=== PATIENT | male | born 1960 | race Caucasian/White ===

== ENCOUNTER 2017-03-17 00:21 | Emergency (ER) | payer OTHER ==
--- NOTE | 2017-03-17 02:18 | ED NURSING NOTES ---
Clinical Report - Nurses [place] [address] [place] [place] [address] 03/17/2017 0:22 Patient: AMANDA BLISS TRIAGE Triage time 00:34. Acuity: LEVEL 3. Chief Complaint: ABDOMINAL PAIN, NAUSEA and VOMITING and URINARY FREQUENCY and FLANK PAIN (right flank pain). --00:41 Maki Lord R.N. 00:34 03/17/17. BP: 165/99 taken on the left arm, while lying. HR: 81 (regular and normal rate). RR: 18 (regular, unlabored and normal). O2 saturation: 98% on room air. Temp: 97.3 F (oral). Pain level now: 03/23. --00:41 Maki Lord R.N. Weight: 97.5 kg stated. Height/Length: 71 inches Per Patient. BMI: 30. --00:38 Maki Lord R.N. Medications None. --00:37 Maki Lord R.N. Allergies Penicillin. --00:37 Maki Lord R.N. History Arrived by private vehicle. Historian: patient. Accompanied by family. Primary physician (ford). Onset was gradual. Symptoms are intermittent (started Tuesday). He has had nausea, vomiting and abdominal pain. Last oral intake by patient was dinner (7 PM). PAST MEDICAL HX: Immunizations: up-to-date. SOCIAL HX: Never smoker. Occasional alcohol use. No drug use. Recent travel by airplane in the last week- ([place]). SELF HARM ASSESSMENT: A self harm assessment was performed. The patient answered "no" to the question "Have you recently felt down, depressed, or hopeless?", "Have you noticed less interest or pleasure in doing things?", "Do you have thoughts of harming or killing yourself?", "Are you here because you tried to hurt yourself?", "Have you ever tried to hurt yourself before today?", "Have you recently had thoughts about harming or killing others?" and "Do you have any dangerous items in your possession?". --00:41 Maki Lord R.N. 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 --00:37 Maki Lord R.N. ADDITIONAL SURGERIES: Knee Surgery. Shoulder Surgery. --00:37 Maki Lord R.N. Interventions ID band on patient. --00:41 Maki Lord R.N. PHYSICAL ASSESSMENT Ambulatory to room. GENERAL / NEURO / PSYCH: Alert. Oriented X 4. Appears in pain. RESPIRATORY: Respirations not labored. Breath sounds within normal limits. CVS: Normal sinus rhythm noted. GI / : The patient has had intermittent episodes of nausea. Abdomen soft. Abdominal tenderness in the right side of the abdomen (right flank with intermittent). Bowel sounds within normal limits. SKIN: Skin is warm and dry. --00:42 Maki Lord R.N. NURSING PROGRESS NOTES Patient gowned. Two patient identifiers checked. Call light placed in reach. Side rails up x 2. Bed placed in lowest position. Brakes of bed on. --00:42 Maki Lord R.N. Patient ready for evaluation- chart flagged. --00:43 Maki Lord R.N. 00:38 03/17/2017 Site #1 started via IV in the left antecubital space with an 20g angiocath, with aseptic technique and good blood return; one attempt. Blood drawn: rainbow set. Labeled in the presence of the patient and sent to the lab. Saline lock flushed with 10 mL saline. --00:48 Torrey Nicholson R.N. 00:48 03/17/2017 Started bag #1 1000 mL IV Fluids IV NS (Saline); at 1000 mL/hr over 1 hour(s) via site #1. Allergies verified and confirmed 5 rights. IV patency established. IV site checked: no pain, redness, or swelling. IV flushed thoroughly pre- and post-medication administration. Completed per protocol. --00:48 Torrey Nicholson R.N. 00:53 03/17/2017 Zofran (Ondansetron HCl) IVP 4 mg given over 1 minute(s) via site #1. Allergies verified and confirmed 5 rights. IV patency established. IV site checked: no pain, redness, or swelling. IV flushed thoroughly pre- and post-medication administration. IVP given by RN. --00:53 Torrey Nicholson R.N. 00:45. ( Patient states that he is nauseous). --00:53 Torrey Nicholson R.N. 01:22 03/17/2017 Dilaudid (HYDROmorphone HCl PF) IVP 0.5 mg given over 2 minute(s) via site #1. Allergies verified, confirmed 5 rights and sedative warning given to the patient. IV patency established. IV site checked: no pain, redness, or swelling. IV flushed thoroughly pre- and post-medication administration. IVP given by RN. --01:23 Maki Lord R.N. Patient transported to [place] by stretcher with tech. (01:23). --01:23 Maki Lord R.N. 01:55 03/17/2017 IV Fluids IV NS Discontinued: bag #1 infused. Total amount infused: 1000 mL. IV patency established. IV site checked: no pain, redness, or swelling. IV flushed thoroughly. --04:03 Nilson Aldana R.N. 02:25 03/17/2017 Dilaudid (HYDROmorphone HCl PF) IVP 0.5 mg given over 2 minute(s) via site #1. Allergies verified, confirmed 5 rights and sedative warning given. IV patency established. IV site checked: no pain, redness, or swelling. IV flushed thoroughly pre- and post-medication administration. IVP given by RN. --04:01 Nilson Aldana R.N. 02:35 03/17/2017 Site #1 removed upon discharge. Catheter intact. Manual pressure, bandaid and bandage applied. --04:03 Nilson Aldana R.N. DISPOSITION / DISCHARGE 02:35 03/17/17. BP: 157/86. HR: 70. RR: 16. O2 saturation: 97% on room air. Temp: 98.7 F. Pain level now: 10. Additional comments: Flank pain. --04:16 Nilson Aldana R.N. Departure time: 0240. --04:16 Nilson Aldana R.N. 02:40. Condition at departure: improved. No learning barriers present. Discharge instructions provided and reviewed with the patient and spouse. Reviewed medication(s) (prescription given to spouse). Reviewed referral to a urologist and family practice for followup. Patient verbalized understanding. Written instructions provided in Italian. The patient was discharged by the physician. He was discharged home and accompanied by spouse. He left the Emergency Department ambulatory and via private vehicle. Spouse driving. --04:24 Nilson Aldana R.N. Locked/Released at 03/17/2017 4:26 by Nilson Aldana R.N.
--- NOTE | 2017-03-17 02:18 | ED NURSING NOTES ---
Clinical Report - Nurses [place] [address] [address] [address] 03/17/2017 0:22 Patient: AMANDA BLISS TRIAGE Triage time 00:34. Acuity: LEVEL 3. Chief Complaint: ABDOMINAL PAIN, NAUSEA and VOMITING and URINARY FREQUENCY and FLANK PAIN (right flank pain). --00:41 Maki Lord R.N. 00:34 03/17/17. BP: 165/99 taken on the left arm, while lying. HR: 81 (regular and normal rate). RR: 18 (regular, unlabored and normal). O2 saturation: 98% on room air. Temp: 97.3 F (oral). Pain level now: 03/23. --00:41 Maki Lord R.N. Weight: 97.5 kg stated. Height/Length: 71 inches Per Patient. BMI: 30. --00:38 Maki Lord R.N. Medications None. --00:37 Maki Lord R.N. Allergies Penicillin. --00:37 Maki Lord R.N. History Arrived by private vehicle. Historian: patient. Accompanied by family. Primary physician ([facility]). Onset was gradual. Symptoms are intermittent (started Tuesday). He has had nausea, vomiting and abdominal pain. Last oral intake by patient was dinner (7 PM). PAST MEDICAL HX: Immunizations: up-to-date. SOCIAL HX: Never smoker. Occasional alcohol use. No drug use. Recent travel by airplane in the last week- ([place]). SELF HARM ASSESSMENT: A self harm assessment was performed. The patient answered "no" to the question "Have you recently felt down, depressed, or hopeless?", "Have you noticed less interest or pleasure in doing things?", "Do you have thoughts of harming or killing yourself?", "Are you here because you tried to hurt yourself?", "Have you ever tried to hurt yourself before today?", "Have you recently had thoughts about harming or killing others?" and "Do you have any dangerous items in your possession?". --00:41 Maki Lord R.N. 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 --00:37 Maki Lord R.N. ADDITIONAL SURGERIES: Knee Surgery. Shoulder Surgery. --00:37 Maki Lord R.N. Interventions ID band on patient. --00:41 Maki Lord R.N. PHYSICAL ASSESSMENT Ambulatory to room. GENERAL / NEURO / PSYCH: Alert. Oriented X 4. Appears in pain. RESPIRATORY: Respirations not labored. Breath sounds within normal limits. CVS: Normal sinus rhythm noted. GI / : The patient has had intermittent episodes of nausea. Abdomen soft. Abdominal tenderness in the right side of the abdomen (right flank with intermittent). Bowel sounds within normal limits. SKIN: Skin is warm and dry. --00:42 Maki Lord R.N. NURSING PROGRESS NOTES Patient gowned. Two patient identifiers checked. Call light placed in reach. Side rails up x 2. Bed placed in lowest position. Brakes of bed on. --00:42 Maki Lord R.N. Patient ready for evaluation- chart flagged. --00:43 Maki Lord R.N. 00:38 03/17/2017 Site #1 started via IV in the left antecubital space with an 20g angiocath, with aseptic technique and good blood return; one attempt. Blood drawn: rainbow set. Labeled in the presence of the patient and sent to the lab. Saline lock flushed with 10 mL saline. --00:48 Torrey Nicholson R.N. 00:48 03/17/2017 Started bag #1 1000 mL IV Fluids IV NS (Saline); at 1000 mL/hr over 1 hour(s) via site #1. Allergies verified and confirmed 5 rights. IV patency established. IV site checked: no pain, redness, or swelling. IV flushed thoroughly pre- and post-medication administration. Completed per protocol. --00:48 Torrey Nicholson R.N. 00:53 03/17/2017 Zofran (Ondansetron HCl) IVP 4 mg given over 1 minute(s) via site #1. Allergies verified and confirmed 5 rights. IV patency established. IV site checked: no pain, redness, or swelling. IV flushed thoroughly pre- and post-medication administration. IVP given by RN. --00:53 Torrey Nicholson R.N. 00:45. ( Patient states that he is nauseous). --00:53 Torrey Nicholson R.N. 01:22 03/17/2017 Dilaudid (HYDROmorphone HCl PF) IVP 0.5 mg given over 2 minute(s) via site #1. Allergies verified, confirmed 5 rights and sedative warning given to the patient. IV patency established. IV site checked: no pain, redness, or swelling. IV flushed thoroughly pre- and post-medication administration. IVP given by RN. --01:23 Maki Lord R.N. Patient transported to [place] by stretcher with tech. (01:23). --01:23 Maki Lord R.N. 01:55 03/17/2017 IV Fluids IV NS Discontinued: bag #1 infused. Total amount infused: 1000 mL. IV patency established. IV site checked: no pain, redness, or swelling. IV flushed thoroughly. --04:03 Nilson Aldana R.N. 02:25 03/17/2017 Dilaudid (HYDROmorphone HCl PF) IVP 0.5 mg given over 2 minute(s) via site #1. Allergies verified, confirmed 5 rights and sedative warning given. IV patency established. IV site checked: no pain, redness, or swelling. IV flushed thoroughly pre- and post-medication administration. IVP given by RN. --04:01 Nilson Aldana R.N. 02:35 03/17/2017 Site #1 removed upon discharge. Catheter intact. Manual pressure, bandaid and bandage applied. --04:03 Nilson Aldana R.N. DISPOSITION / DISCHARGE 02:35 03/17/17. BP: 157/86. HR: 70. RR: 16. O2 saturation: 97% on room air. Temp: 98.7 F. Pain level now: 10. Additional comments: Flank pain. --04:16 Nilson Aldana R.N. Departure time: 0240. --04:16 Nilson Aldana R.N. 02:40. Condition at departure: improved. No learning barriers present. Discharge instructions provided and reviewed with the patient and spouse. Reviewed medication(s) (prescription given to spouse). Reviewed referral to a urologist and family practice for followup. Patient verbalized understanding. Written instructions provided in Ecuadorean. The patient was discharged by the physician. He was discharged home and accompanied by spouse. He left the Emergency Department ambulatory and via private vehicle. Spouse driving. --04:24 Nilson Aldana R.N. Locked/Released at 03/17/2017 4:26 by Nilson Aldana R.N.
--- NOTE | 2017-03-17 02:18 | ED CLINICAL REPORT ---
Clinical Report - Physicians/Mid Levels [facility] [address] [place] [address] 03/17/2017 0:22 Patient: AMANDA BLISS Time Seen: 01:05. Arrived- By private vehicle. Historian- patient. HISTORY OF PRESENT ILLNESS Chief Complaint: FLANK PAIN. At its maximum, severity described as severe. When seen in the E.D., severity described as moderate. Modifying factors. Not worsened by anything. Not relieved by anything. It is described as "pain" and sharp. It is described as located in the right flank and the right abdomen, right lower quadrant and right pelvis and radiating to the right lower quadrant of the abdomen. This started about 3 - 4 days ago, worse just prior to arival and is still present. It was gradual in onset and has been waxing/waning. The patient has had nausea and vomiting. No diarrhea. Similar symptoms previously: Recent medical care: Not recently seen/assessed. REVIEW OF SYSTEMS No constipation, black stools, hematemesis, difficulty with urination or pain with urination. No bloody stools, fever, headache, sore throat or chest pain. No difficulty breathing or cough. The patient has had urinary frequency. The patient has had back pain. All systems otherwise negative, except as recorded above. PAST HISTORY PCP: [facility] (Dr Escobar) 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 SURGERIES: Knee Surgery. Shoulder Surgery. Medications: None. Allergies: Penicillin. SOCIAL HISTORY Never smoker. Occasional alcohol use. No drug use. ADDITIONAL NOTES The nursing notes have been reviewed. PHYSICAL EXAM Vital Signs: 03/17/2017 00:34 BP: 165/99. HR: 81. RR: 18. O2 saturation: 98%. Temp: 97.3 F. Pain level now: 5/10. Appearance: Alert. Oriented X3. Patient in moderate distress. Eyes: Eyes normal inspection. No scleral icterus or pale conjunctivae. ENT: Pharynx normal. No pharyngeal erythema or tonsillar exudate. The mucous membranes are not dry. Neck: Normal inspection. Neck supple. CVS: Normal heart rate and rhythm. Heart sounds normal. Pulses normal. Respiratory: No respiratory distress. Breath sounds normal. Abdomen: Soft and nontender. No mass. Back: Mild CVA tenderness on the right. : Normal genitalia. Skin: Skin warm and dry. Normal skin color. No rash. Normal skin turgor. Extremities: Extremities exhibit normal ROM. No lower extremity edema. No calf tenderness. No lower extremity edema. Neuro: Oriented X 3. No motor deficit. LABS, X-RAYS, AND EKG Laboratory Tests: UA-Culture if indicated: (BRET: 03/17/2017 02:14) ( [facility] [place] 03/17/2017 02:32) Final results Test Result Flag Units (Reference) URINE COLOR YELLOW URINE APPEARANCE CLEAR URINE GLUCOSE NEGATIVE (NEGATIVE) URINE BILIRUBIN NEGATIVE (NEGATIVE) URINE KETONE NEGATIVE (NEGATIVE) URINE SPECIFIC GRAVITY 1.015 (1.010-1.030) URINE PH 7.0 (5.0-8.0) URINE PROTEIN NEGATIVE (NEGATIVE) URINE UROBILINOGEN 0.2 EU/dL (0.2-1.0) URINE NITRITE NEGATIVE (NEGATIVE) URINE BLOOD 1+ (NEGATIVE) URINE LEUK ESTERASE NEGATIVE (NEGATIVE) URINE RBC 1-3 rbc/hpf (0-1) URINE WBC 0-1 wbc/hpf (0-1) URINE EPITHELIAL CELLS 0-1 EPI/hpf (0-5) URINE BACTERIA NONE SEEN (NONE SEEN) URINE COMMENT CULT NOT INDICATED URINE CULTURES ARE SET-UP BASED ON THE FOLLOWING CRITERIA:POSITIVE NITRITEPOSITIVE LEUKOCYTE ESTERASEGREATER THAN 10 WHITE BLOOD CELLSMODERATE (2+) OR GREATER BACTERIA CBC w Diff: (BRET: 03/17/2017 00:40) ( Mscvd 03/17/2017 00:58) Final results Test Result Flag Units (Reference) WHITE BLOOD COUNT 12.2 H K/uL (4.5-11.5) RED BLOOD COUNT 4.71 M/uL (4.50-5.90) HEMOGLOBIN 14.4 gm/dL (13.5-17.5) HEMATOCRIT 42.9 % (41.0-53.0) MEAN CELL VOLUME 91 fL (80-100) MEAN CORPUSCULAR HGB 31 pg (26-34) MEAN CORPUSCULAR HGB CONC 34 g/dL (31-37) RED CELL DISTRIBUTION WIDTH 13.3 % (11.6-14.8) PLATELET COUNT 297 K/uL (150-400) NEUTROPHIL % 80.6 H % (50-75) LYMPH % 11.8 L % (25-40) MONO % 6.2 % (3-14) EOSINOPHIL % 1.1 % (0-4) BASOPHIL % 0.3 % (0-2) CMP: (BRET: 03/17/2017 00:40) ( MsgRcvd 03/17/2017 01:10) Final results Test Result Flag Units (Reference) GLUCOSE 128 H mg/dL (70-110) BUN 31 H mg/dL (7-18) CREATININE 1.6 H mg/dL (0.6-1.3) Estimated GFR 47.42 mL/min Estimated GFR- 57.48 mL/min Note: Persistent reduction over 3 months in eGFR<60 mL/min/1.73 m2 defines CKD. Patients with eGFR values>=60 mL/min/1.73 m2 may also have CKD if evidence ofpersistent proteinuria. Additional information may be foundat www.kidney.org. SODIUM 144 mmol/L (136-145) POTASSIUM 4.2 mmol/L (3.5-5.1) CHLORIDE 106 mmol/L (98-107) CARBON DIOXIDE 27 mmol/L (21-32) CALCIUM 8.5 mg/dL (8.5-10.1) TOTAL PROTEIN 7.6 g/dL (6.4-8.2) ALBUMIN 3.8 g/dL (3.3-5.0) BILIRUBIN, TOTAL 0.4 mg/dL (0.0-1.0) ALKALINE PHOSPHATASE 115 U/L (46-116) AST (SGOT) 25 U/L (15-37) ALT (SGPT) 55 U/L (12-78) . Pulse Oximetry: 03/17/2017 00:34 O2 saturation: 98%. (FIO2 - room air). Interpretation: normal. PROGRESS AND PROCEDURES Course of Care: Normal Saline 1 liter IVPB given. Zofran 4 mg IVP given. Dilaudid 0.5 mg + 0.5 mg IVP given. 02:26 03/17/17. Patient is stable. Physical exam findings are improved. Symptoms much better. Stone at the UV junction - should pass. Patient/family counseled. Old ED records reviewed. Disposition: Discharged. Condition: stable and improved. CLINICAL IMPRESSION Ureterolithiasis (single stone) in the right ureter with renal colic (3 mm stone at the UVJ). No urinary tract infection. Inhomogeneous hepatic density of unclear etiology - likely artifactual. INSTRUCTIONS Do not work for two days. Drink plenty of fluids. No alcohol until released. Warnings: Further evaluation is necessary in order to recheck abnormal lab, obtain test results, conduct further tests and assess the possibility of serious illness. It is very important to follow up with a physician. SEDATIVE MEDICATION: You were given sedative medication during your visit. Do not drive or operate dangerous machinery. CONTROLLED SUBSTANCE WARNINGS. GENERAL WARNINGS: Return or contact your physician immediately if your condition worsens or changes unexpectedly, if not improving as expected, or if other problems arise. Prescription Medications: Hydrocodone/APAP 5mg / 325mg: take 1-2 orally every 6 hours as needed for pain. Dispense ten (10). No refill. Zofran (orally disintegrating tablets) 4 mg: take 1-2 orally every 8 hours as needed for nausea and vomiting. Dispense ten (10). No refill. Substitution is permissible. Follow-up: Follow up with your doctor tomorrow. Follow up with a urologist- as recommended by your primary care physician. (Electronically signed by Fernando Medley DO 03/17/2017 4:55)
--- NOTE | 2017-03-17 02:18 | ED ORDER SUMMARY ---
..... Patient: AMANDA BLISS OrderSheet [facility] VisitID: [id number] [place] [address] 57y, M Registration Date/Time: 03/17/2017 ORDER SHEET Weight: 97.5 kg (stated) Allergies: Penicillin GENERAL ORDERS: CBC w Diff Urgent (00:47 03/17/2017 DDavis R.N. per protocol) (0:47 DDavis R.N.) CMP Urgent (00:47 03/17/2017 DDavis R.N. per protocol) (0:47 DDavis R.N.) UA-Culture if indicated Urgent (00:47 03/17/2017 DDavis R.N. per protocol) (Ack 0:48 Lucien ER Cattle Manager) (2:15 LAURIEradburn R.N.) CT Abd/Pel wo Cont Urgent (01:05 03/17/2017 [facility] DO) (Ack 1:08 Lucien ER Cattle Manager) (1:23 Palmerburn R.N.) MEDICATION ORDERS: IV FLUIDS: IV NS : initial bolus 1000 mL (1000 mL/hr), then none - (NOW); Stat (00:46 03/17/2017 DDavis R.N. per protocol) (0:48 DDavis R.N.) IV Saline Lock (00:47 03/17/2017 DDavis R.N. per protocol) (0:48 DDavis R.N.) Zofran IV 4 mg (NOW) (00:52 03/17/2017 DDavis R.N. verbal order read back to [facility]) (0:53 DDavis R.N.) Dilaudid IV 0.5 mg (HIGH ALERT MEDICATION, NOW) (01:05 [facility] (Ack 1:06 CBrene R.N.) (1:23 Fadi R.N.) Dilaudid IV 0.5 mg (HIGH ALERT MEDICATION, NOW) (02:26 03/17/2017 [facility]) (4:01 Mick Jimenez.NAj) ORDER SHEET NOTES: [Electronically signed by Nilson Aldana R.N. (04:03/17/2017)] [Electronically signed by Fernando Medley DO (04:55 03/17/2017)] [Electronically locked/signed by Nilson Aldana R.N. (:03/17/2017)]
--- NOTE | 2017-03-17 02:18 | ED ORDER SUMMARY ---
..... Patient: AMANDA BLISS OrderSheet [facility] VisitID: [id number] [place] [address] 57y, M Registration Date/Time: 03/17/2017 ORDER SHEET Weight: 97.5 kg (stated) Allergies: Penicillin GENERAL ORDERS: CBC w Diff Urgent (00:47 03/17/2017 DDavis R.N. per protocol) (0:47 DDavis R.N.) CMP Urgent (00:47 03/17/2017 DDavis R.N. per protocol) (0:47 DDavis R.N.) UA-Culture if indicated Urgent (00:47 03/17/2017 DDavis R.N. per protocol) (Ack 0:48 Lucien ER Volunteer Patient Representative) (2:15 LAURIEradburn R.N.) CT Abd/Pel wo Cont Urgent (01:05 03/17/2017 [facility] DO) (Ack 1:08 Lucien ER Volunteer Patient Representative) (1:23 Palmerburn R.N.) MEDICATION ORDERS: IV FLUIDS: IV NS : initial bolus 1000 mL (1000 mL/hr), then none - (NOW); Stat (00:46 03/17/2017 DDavis R.N. per protocol) (0:48 DDavis R.N.) IV Saline Lock (00:47 03/17/2017 DDavis R.N. per protocol) (0:48 DDavis R.N.) Zofran IV 4 mg (NOW) (00:52 03/17/2017 DDavis R.N. verbal order read back to [facility]) (0:53 DDavis R.N.) Dilaudid IV 0.5 mg (HIGH ALERT MEDICATION, NOW) (01:05 [facility] (Ack 1:06 CBrene R.N.) (1:23 Fadi R.N.) Dilaudid IV 0.5 mg (HIGH ALERT MEDICATION, NOW) (02:26 [facility]/17/2017 [facility]) (4:01 Mick Jimenez.NAj) ORDER SHEET NOTES: [Electronically signed by Nilson Aldana R.N. (04:03/17/2017)] [Electronically signed by Fernando Medley DO (04:55 03/17/2017)] [Electronically locked/signed by Nilson Aldana R.N. (:03/17/2017)]
--- NOTE | 2017-03-17 04:56 | ED MAR SUMMARY ---
..... Medication Administration Record [facility] [address] [place] [address] Patient: AMANDA BLISS Visit ID: [id number] 57y, M Weight: 97.5 kg Height/Length: 71 in BMI: 30 ALLERGIES: Penicillin Start 00:48 03/17/2017 Torrey Nicholson R.N., Stop 01:55 03/17/2017 Nilson Aldana R.N. Medication Administered: IV NS (SALINE), Dose: IV Fluids over 1 hour(s), Rate: 1000 mL/hr, Dispensed: 1000 mL bag, Site: #1 left AC. Medication Ordered: IV NS : initial bolus 1000 mL (1000 mL/hr), then none - (NOW); Stat. Given 00:53 03/17/2017 Torrey Nicholson R.N. Medication Administered: ZOFRAN [IVP] (ONDANSETRON HCL), Dose: 4 mg IVP over 1 minute(s), Site: #1 left AC. Medication Ordered: Zofran IV 4 mg (NOW). Given 01:22 03/17/2017 Maki Lord R.N. Medication Administered: DILAUDID [IVP] (HYDROMORPHONE HCL PF), Dose: 0.5 mg IVP over 2 minute(s), Site: #1 left AC. Medication Ordered: Dilaudid IV 0.5 mg (HIGH ALERT MEDICATION, NOW). Given 02:25 03/17/2017 Nilson Aldana RAjNAj Medication Administered: DILAUDID [IVP] (HYDROMORPHONE HCL PF), Dose: 0.5 mg IVP over 2 minute(s), Site: #1 left AC. Medication Ordered: Dilaudid IV 0.5 mg (HIGH ALERT MEDICATION, NOW).
--- NOTE | 2017-03-17 04:56 | ED MED RECONCILIATION SUMMARY ---
Patient: AMANDA BLISS Medication Reconciliation Report [facility] VisitID: [id number] [address] [place] [address] 57y, M Registration Date/Time: 03/17/2017 Weight: 97.5 kg Height/Length: 71 in. BMI: 30.0 ALLERGIES: Penicillin The patient's Home Medications are listed below: NONE. The source(s) of the original Home Medication information: Not obtained. The following Medications were given to the patient in the Emergency Department: IV NS IV Fluids bolus 0, then 1000 mL/hr, administered: 03/17/2017 12:48:00 AM Zofran [IVP] IVP 4 mg, administered: 03/17/2017 12:53:00 AM Dilaudid [IVP] IVP 0.5 mg, administered: 03/17/2017 1:22:00 AM Dilaudid [IVP] IVP 0.5 mg, administered: 03/17/2017 2:25:00 AM The following Medications were prescribed to the patient: Hydrocodone/APAP 5mg / 325mg: take 1-2 orally every 6 hours as needed for pain. Dispense ten (10). No refill. -- Fernando Medley DO Zofran (orally disintegrating tablets) 4 mg: take 1-2 orally every 8 hours as needed for nausea and vomiting. Dispense ten (10). No refill. Substitution is permissible. -- Fernando Medley DO
--- NOTE | 2017-03-17 04:56 | ED DISCHARGE INSTRUCTIONS ---
Patient: AMANDA BLISS General Instructions [facility] VisitID: [id number] [place] [address] 57y, M Registration Date/Time: 03/17/2017 Ureterolithiasis (single stone) in the right ureter with renal colic (3 mm stone at the UVJ). No urinary tract infection. Inhomogeneous hepatic density of unclear etiology - likely artifactual. INSTRUCTIONS Do not work for two days. Drink plenty of fluids. No alcohol until released. Warnings: Further evaluation is necessary in order to recheck abnormal lab, obtain test results, conduct further tests and assess the possibility of serious illness. It is very important to follow up with a physician. SEDATIVE MEDICATION: You were given sedative medication during your visit. Do not drive or operate dangerous machinery. CONTROLLED SUBSTANCE WARNINGS. GENERAL WARNINGS: Return or contact your physician immediately if your condition worsens or changes unexpectedly, if not improving as expected, or if other problems arise. Prescription Medications: Hydrocodone/APAP 5mg / 325mg: take 1-2 orally every 6 hours as needed for pain. Dispense ten (10). No refill. Zofran (orally disintegrating tablets) 4 mg: take 1-2 orally every 8 hours as needed for nausea and vomiting. Dispense ten (10). No refill. Substitution is permissible. Follow-up: Follow up with your doctor tomorrow. Follow up with a urologist- as recommended by your primary care physician. ADDITIONAL INFORMATION Kidney Stone (W/ Colic) The sharp cramping pain and nausea/vomiting that you have is due to a small stone which has formed in the kidney and is now passing down a narrow tube (ureter) on its way to your bladder. Once it reaches your bladder, the pain will stop. The stone may pass in your urine stream in one piece. [The size may be 1/16" to 1/4" (1-6mm)]. Or, the stone may also break up into capo fragments which you may not even notice. Once you have had a kidney stone, you are at risk for developing another one in the future. Home Care: Drink plenty of fluids (at least 8 to 10 glasses of water a day). Most stones will pass on their own, but may take from a few hours to a few days. Sometimes the stone is too large to pass by itself and special methods will have to be used to remove the stone. Each time you urinate, do so in a jar. Pour the urine from the jar through the strainer and into the toilet. Continue doing this until 24 hours after your pain stops. By then, if there was a kidney stone, it should pass from your bladder. Some stones dissolve into sand-like particles and pass right through the strainer. In that case, you wont ever see a stone. Save any stone that you find in the strainer and bring it to your doctor for analysis. It may be possible to prevent certain types of stones from forming. Therefore, it is important to know what kind of stone you have. Try to stay as active as possible since this will help the stone pass. Do not stay in bed unless your pain prevents you from getting up. You may notice a red, pink or brown color to your urine. This is normal while passing a kidney stone. Follow Up with your doctor or return to this facility if the pain lasts more than 48 hours. Get Prompt Medical Attention if any of the following occur: Pain that is not controlled by the medicine given Repeated vomiting or unable to keep down fluids Weakness, dizziness or fainting Fever of 100.4F (38C) or higher, or as directed by your healthcare provider Passage of solid red or brown urine (can't see through it) or urine with lots of blood clots Unable to pass urine for 8 hours and increasing bladder pressure Hydrocodone Bitartrate, Acetaminophen Oral tablet What is this medicine? ACETAMINOPHEN; HYDROCODONE (a set a DUANE lyla fen; judith droe KOE done) is a pain reliever. It is used to treat mild to moderate pain. How should I use this medicine? Take this medicine by mouth. Swallow it with a full glass of water. Follow the directions on the prescription label. If the medicine upsets your stomach, take the medicine with food or milk. Do not take more than you are told to take. Talk to your carpet installation specialist regarding the use of this medicine in children. This medicine is not approved for use in children. What side effects may I notice from receiving this medicine? Side effects that you should report to your doctor or health intensive care unit nurse as soon as possible: allergic reactions like skin rash, itching or hives, swelling of the face, lips, or tongue breathing problems confusion feeling faint or lightheaded, falls stomach pain yellowing of the eyes or skin Side effects that usually do not require medical attention (report to your doctor or health intensive care unit nurse if they continue or are bothersome): nausea, vomiting stomach upset What may interact with this medicine? alcohol antihistamines isoniazid medicines for depression, anxiety, or psychotic disturbances medicines for sleep muscle relaxants naltrexone narcotic medicines (opiates) for pain phenobarbital ritonavir tramadol What if I miss a dose? If you miss a dose, take it as soon as you can. If it is almost time for your next dose, take only that dose. Do not take double or extra doses. Where should I keep my medicine? Keep out of the reach of children. This medicine can be abused. Keep your medicine in a safe place to protect it from theft. Do not share this medicine with anyone. Selling or giving away this medicine is dangerous and against the law. Store at room temperature between 15 and 30 degrees C (59 and 86 degrees F). Protect from light. Keep container tightly closed. Throw away any unused medicine after the expiration date. Discard unused medicine and used packaging carefully. Pets and children can be harmed if they find used or lost packages. What should I tell my health care provider before I take this medicine? They need to know if you have any of these conditions: brain tumor Crohn's disease, inflammatory bowel disease, or ulcerative colitis drink more than 3 alcohol-containing drinks per day drug abuse or addiction head injury heart or circulation problems kidney disease or problems going to the bathroom liver disease lung disease, asthma, or breathing problems an unusual or allergic reaction to acetaminophen, hydrocodone, other opioid analgesics, other medicines, foods, dyes, or preservatives or trying to get breast-feeding What should I watch for while using this medicine? Tell your doctor or health intensive care unit nurse if your pain does not go away, if it gets worse, or if you have new or a different type of pain. You may develop tolerance to the medicine. Tolerance means that you will need a higher dose of the medicine for pain relief. Tolerance is normal and is expected if you take the medicine for a long time. Do not suddenly stop taking your medicine because you may develop a severe reaction. Your body becomes used to the medicine. This does NOT mean you are addicted. Addiction is a behavior related to getting and using a drug for a non-medical reason. If you have pain, you have a medical reason to take pain medicine. Your doctor will tell you how much medicine to take. If your doctor wants you to stop the medicine, the dose will be slowly lowered over time to avoid any side effects. You may get drowsy or dizzy when you first start taking the medicine or change doses. Do not drive, use machinery, or do anything that may be dangerous until you know how the medicine affects you. Stand or sit up slowly. There are different types of narcotic medicines (opiates) for pain. If you take more than one type at the same time, you may have more side effects. Give your health care provider a list of all medicines you use. Your doctor will tell you how much medicine to take. Do not take more medicine than directed. Call emergency for help if you have problems breathing. The medicine will cause constipation. Try to have a bowel movement at least every 2 to 3 days. If you do not have a bowel movement for 3 days, call your doctor or health intensive care unit nurse. Too much acetaminophen can be very dangerous. Do not take Tylenol (acetaminophen) or medicines that contain acetaminophen with this medicine. Many non-prescription medicines contain acetaminophen. Always read the labels carefully. Ondansetron Oral disintegrating tablet What is this medicine? ONDANSETRON (on ALBERTO se tami) is used to treat nausea and vomiting caused by chemotherapy. It is also used to prevent or treat nausea and vomiting after surgery. How should I use this medicine? These tablets are made to dissolve in the mouth. Do not try to push the tablet through the foil backing. With dry hands, peel away the foil backing and gently remove the tablet. Place the tablet in the mouth and allow it to dissolve, then swallow. While you may take these tablets with water, it is not necessary to do so. Talk to your carpet installation specialist regarding the use of this medicine in children. Special care may be needed. What side effects may I notice from receiving this medicine? Side effects that you should report to your doctor or health intensive care unit nurse as soon as possible: allergic reactions like skin rash, itching or hives, swelling of the face, lips, or tongue breathing problems dizziness fast or irregular heartbeat feeling faint or lightheaded, falls fever and chills swelling of the hands and feet tightness in the chest Side effects that usually do not require medical attention (report to your doctor or health intensive care unit nurse if they continue or are bothersome): constipation or diarrhea headache What may interact with this medicine? Do not take this medicine with any of the following medications: -apomorphine -cisapride -dofetilide -dronedarone -pimozide -thioridazine -ziprasidone This medicine may also interact with the following medications: -carbamazepine -phenytoin -rifampicin -tramadol -other medicines that prolong the QT interval (cause an abnormal heart rhythm) What if I miss a dose? If you miss a dose, take it as soon as you can. If it is almost time for your next dose, take only that dose. Do not take double or extra doses. Where should I keep my medicine? Keep out of the reach of children. Store between 2 and 30 degrees C (36 and 86 degrees F). Throw away any unused medicine after the expiration date. What should I tell my health care provider before I take this medicine? They need to know if you have any of these conditions: heart disease history of irregular heartbeat liver disease low levels of magnesium or potassium in the blood an unusual or allergic reaction to ondansetron, granisetron, other medicines, foods, dyes, or preservatives or trying to get breast-feeding What should I watch for while using this medicine? Check with your doctor or health intensive care unit nurse as soon as you can if you have any sign of an allergic reaction. You have been given the following additional information: Kidney Stone W/ Colic Hydrocodone Bitartrate, Acetaminophen Oral tablet Ondansetron Oral disintegrating tablet Do not work for two days. (Electronically signed by Fernando Medley DO 03/17/2017 4:55)
--- NOTE | 2017-03-17 04:56 | ED MAR SUMMARY ---
..... Medication Administration Record [facility] [address] [place] [address] Patient: AMANDA BLISS Visit ID: [id number] 57y, M Weight: 97.5 kg Height/Length: 71 in BMI: 30 ALLERGIES: Penicillin Start 00:48 03/17/2017 Torrey Nicholson R.N., Stop 01:55 03/17/2017 Nilson Aldana R.N. Medication Administered: IV NS (SALINE), Dose: IV Fluids over 1 hour(s), Rate: 1000 mL/hr, Dispensed: 1000 mL bag, Site: #1 left AC. Medication Ordered: IV NS : initial bolus 1000 mL (1000 mL/hr), then none - (NOW); Stat. Given 00:53 03/17/2017 Torrey Nicholson R.N. Medication Administered: ZOFRAN [IVP] (ONDANSETRON HCL), Dose: 4 mg IVP over 1 minute(s), Site: #1 left AC. Medication Ordered: Zofran IV 4 mg (NOW). Given 01:22 03/17/2017 Maki Lord R.N. Medication Administered: DILAUDID [IVP] (HYDROMORPHONE HCL PF), Dose: 0.5 mg IVP over 2 minute(s), Site: #1 left AC. Medication Ordered: Dilaudid IV 0.5 mg (HIGH ALERT MEDICATION, NOW). Given 02:25 03/17/2017 Nilson Aldana RAjNAj Medication Administered: DILAUDID [IVP] (HYDROMORPHONE HCL PF), Dose: 0.5 mg IVP over 2 minute(s), Site: #1 left AC. Medication Ordered: Dilaudid IV 0.5 mg (HIGH ALERT MEDICATION, NOW).
--- NOTE | 2017-03-17 04:56 | ED MED RECONCILIATION SUMMARY ---
Patient: AMANDA BLISS Medication Reconciliation Report [facility] VisitID: [id number] [address] [place] [address] 57y, M Registration Date/Time: 03/17/2017 Weight: 97.5 kg Height/Length: 71 in. BMI: 30.0 ALLERGIES: Penicillin The patient's Home Medications are listed below: NONE. The source(s) of the original Home Medication information: Not obtained. The following Medications were given to the patient in the Emergency Department: IV NS IV Fluids bolus 0, then 1000 mL/hr, administered: 03/17/2017 12:48:00 AM Zofran [IVP] IVP 4 mg, administered: 03/17/2017 12:53:00 AM Dilaudid [IVP] IVP 0.5 mg, administered: 03/17/2017 1:22:00 AM Dilaudid [IVP] IVP 0.5 mg, administered: 03/17/2017 2:25:00 AM The following Medications were prescribed to the patient: Hydrocodone/APAP 5mg / 325mg: take 1-2 orally every 6 hours as needed for pain. Dispense ten (10). No refill. -- Fernando Medley DO Zofran (orally disintegrating tablets) 4 mg: take 1-2 orally every 8 hours as needed for nausea and vomiting. Dispense ten (10). No refill. Substitution is permissible. -- Fernando Medley DO
--- NOTE | 2017-03-17 07:43 | DIAGNOSTIC IMAGING REPORT ---
PROCEDURE: CT ABDOMEN/PELVIS W/O CONTRAST INDICATION: Right FLANK PAIN TECHNIQUE: Axial CT images were obtained through the abdomen and pelvis without IV contrast. Coronal and sagittal reformations were created. COMPARISON: None. FINDINGS: Clear lung bases. Mildly enlarged heart. No hiatal hernia. Geographic, large hypodensities in the liver consistent with fatty infiltration. Mild right hydronephrosis and moderate perinephric fat stranding. Mild armen ureteric inflammation. Minimal hydroureter. 4 mm calculus at the right ureterovesicular junction. Punctate, nonobstructing right upper pole intrarenal calculus. No left-sided urinary calculi. The unenhanced appearance of the gallbladder, adrenal glands, left kidney, pancreas and spleen is normal. The abdominal aorta is normal in its course and caliber with atherosclerosis. There are no suspicious calcifications, retroperitoneal adenopathy or masses. The stomach, upper bowel loops, and mesentery appears normal. Intact anterior abdominal wall. No free fluid, or inflammation. Mildly enlarged prostate gland. The unenhanced appearance of the seminal vesicles, urinary bladder, pelvic vessels, and pelvic bowel loops is normal. Normal appendix. No suspicious calcifications, free fluid, or mass. Intact osseous structures. Severe degenerative disc height loss at L5-S1. Degenerative change at the pubic symphysis. IMPRESSION: 1. 4 mm right ureterovesicular junction calculus causing mild right hydronephrosis and moderate perinephric inflammation. 2. Nonobstructing intrarenal calculi. 3. Heterogeneous hepatic density consistent with geographic fatty infiltration. 4. Preliminary report by Dr. Troy Ramírez of [facility] radiology. All CT scans at this facility use dose modulation, iterative reconstruction, and/or weight-based dosing when appropriate to reduce radiation dose to as low as reasonably achievable.
== END 2017-03-17 02:40 | disposition home or self-care (01) ==
LOC: ED SRH 00:21
DX: N20.1 Calculus of ureter (principal); R93.2 Abnormal findings on diagnostic imaging of liver and biliary tract; Z88.0 Allergy status to penicillin
CPT/HCPCS: 90004; 90100; 95059